=== PATIENT | female | born 1950 | race African-American/Black ===

== ENCOUNTER 2018-10-09 09:54 | Emergency (ER) | payer MEDICARE, OTHER ==
[2018-10-09 10:24] LABS: #Basophils 0.1 thou/uL (0.0-0.2); #Eosinphils 0.1 thou/uL (0.0-0.7); #Monocytes 0.6 thou/uL (0.11-0.59); %Basophils 1.2 % (0.0-1.0); %Eosinophils 1.6 % (0.0-10.0); %Monocytes 6.3 % (0.0-10.0); Hemoglobin 13.7 g/dL (12.0-16.0); Mean Corpuscular HGB CONC 33.9 g/dL (32.0-36.0); Mean Corpuscular Volume 79.5 fL (78.0-98.0); Mean Platelet Volume 8.4 fL (7.4-10.4); Platelet Count 269 thou/uL (130-400); RBC Distribution Width 18.1 % (11.5-14.5); Red Blood Cell (RBC) Count 5.06 mill/uL (4.20-5.40); White Blood Cell (WBC) Count 8.8 thou/uL (4.8-10.8)
[2018-10-09 10:38] LABS: ALT (SGPT) 21 U/L (8-55); AST (SGOT) 18 U/L (5-34); Albumin 3.7 g/dL (3.4-4.8); Alkaline Phosphatase 93 U/L (40-150); Anion Gap 12 mmol/L (10-20); BUN (Urea Nitrogen) 15 mg/dL (9.8-20.1); Bilirubin, Total 0.5 mg/dL (0.2-1.2); Calc. Creatinine Clearance 0 mL/min (70-130); Calcium 9.9 mg/dL (7.8-10.44); Carbon Dioxide 26 mmol/L (23-31); Chloride 105 mmol/L (98-107); Estimated GFR-MDRD 80; Globulin 3.5 g/dL (2.4-3.5); Glucose 135 mg/dL (80-115); Potassium 3.9 mmol/L (3.5-5.1); Protein, Total 7.2 g/dL (6.0-8.3); Sodium 139 mmol/L (136-145)
[2018-10-09] MEDS ORDERED: Ketorolac Tromethamine 30 MG/ML VIAL ONE (11:53)
[2018-10-09] MEDS ORDERED: Prochlorperazine 10 MG/2 ML VIAL ONE (12:15)
[2018-10-09] MEDS ORDERED: diphenhydrAMINE 50 MG/ML VIAL ONE (12:15)
--- NOTE | 2018-10-09 15:39 | RAD ---
PORTABLE CHEST: Date: 10/09/18 An AP portable film at 1001 hours shows a normal sized heart and clear lungs. No infiltrate or effusi on seen. There is no vascular congestion or edema. Mediastinum shows no widening. IMPRESSION: No significant findings. POS: HOME
--- NOTE | 2018-10-10 09:53 | CT ---
PRELIMINARY REPORT/[facility]/EMERGENTY AFTER-HOURS PROCEDURE CT Angiography Chest With Contrast EXAM DATE/TIME: 10/09/2018 11:30 AM CLINICAL HISTORY: 67 years old, female; Pain; Other: Chest pain; Additional info: No prev/er/67f presents with complain ts of intermittent elevated blood pressure, with brief episodes of sharp stabbing headache, chest sean n, jaw and arm pain, all of which have been going on for the past 3 days. Reports BP at home of 220/1 40 TECHNIQUE: Axial computed tomographic angiography images of the chest with intravenous contrast using CT angiogr aphy protocol. COMPARISON: No relevant prior studies available. FINDINGS: Pulmonary arteries: There is no pulmonary arterial filling defect. Aorta: There is an incidental anatomic variation left vertebral artery with a direct aortic origin. T he thoracic aorta is normal. There is no stenosis, dissection or aneurysm. Thyroid: There are tiny hypodense right thyroid nodules measuring up to 5 mm. Thyroid lesions this si ze are statistically most likely benign. ACR White Paper guidelines (Rossi JK, et al. JACR 2015;12(2):143-50) suggest that no follow-up is necessary. Lungs: There is atelectasis within the lungs. There is no organized pneumonia. There is a small right lower lobe bulla. There is no evidence of pneumonia. Pleural space: Normal. No pneumothorax. No pleural effusion. Heart: There is mild cardiomegaly. There is no coronary artery calcification detected. Mediastinum: A small hiatal hernia is present. Lymph nodes: Unremarkable. No enlarged lymph nodes. Bones/joints: Unremarkable. No acute fracture. Soft tissues: Unremarkable. IMPRESSION: 1. The thoracic aorta is normal. There is no stenosis, dissection or aneurysm. 2. There is no acute cardiopulmonary process. 3. There is mild cardiomegaly. There is no coronary artery calcification detected. CT Angiography Abdomen and Pelvis With Contrast EXAM DATE/TIME: 10/09/2018 11:30 AM CLINICAL HISTORY: 67 years old, female; Pain; Other: Chest pain; Additional info: No prev/er/67f presents with complain ts of intermittent elevated blood pressure, with brief episodes of sharp stabbing headache, chest sean n, jaw and arm pain, all of which have been going on for the past 3 days. Reports BP at home of 220/1 40 TECHNIQUE: Axial computed tomographic angiography images of the abdomen and pelvis with intravenous contrast mat erial, including non-contrast images if performed. MIP and/or 3D reconstructed images were created and reviewed. All CT scans at this facility use at le ast one of these dose optimization techniques: automated exposure control; mA and/or kV adjustment pe r patient size (includes targeted exams where dose is matched to clinical indication); or iterative r econstruction. MIP reconstructed images were created and reviewed. CONTRAST: 100 ml of ISO 370 administered intravenously. COMPARISON: No relevant prior studies available. FINDINGS: VASCULATURE: Aorta: The abdominal aorta is normal. There is no dissection, aneurysm or stenosis. Celiac trunk and mesenteric arteries: No occlusion or significant stenosis. Renal arteries: No occlusion or significant stenosis. Right iliac arteries: No occlusion or significant stenosis. Right femoral/popliteal arteries: No occlusion or significant stenosis of the imaged proximal femoral artery. The popliteal artery was not imaged. Left iliac arteries: No occlusion or significant stenosis. Left femoral/popliteal arteries: No occlusion or significant stenosis of the imaged proximal femoral artery. The popliteal artery was not imaged. ABDOMEN: Liver: No mass. Gallbladder and bile ducts: Unremarkable. No calcified stones. No ductal dilation. Pancreas: Unremarkable. No mass. No ductal dilation. Spleen: Unremarkable. No splenomegaly. Adrenals: There is nodularity of the left adrenal gland without a dominant mass. There is no acute ad renal gland abnormality detected. Normal right adrenal gland. Kidneys and ureters: Unremarkable. No solid mass. No hydronephrosis. Stomach and bowel: Moderate nonacute colonic diverticulosis is present. There is segmental mucosal th ickening of the colon from cecum to the transverse segment. There is no pericolonic fat stranding. This may be due to colon spasm versus mild segmental colitis. No bowel obstruction. Appendix: The appendix is normal. PELVIS: Bladder: The urinary bladder is not in the [id number]-cusl. Reproductive: The uterus is not in the [id number]. ABDOMEN and PELVIS: Intraperitoneal space: Unremarkable. No free air. No significant fluid collection. Bones/joints: No acute fracture. No dislocation. Soft tissues: Unremarkable. Lymph nodes: Unremarkable. No enlarged lymph nodes. IMPRESSION: 1. The abdominal aorta is normal. There is no dissection, aneurysm or stenosis. 2. There is segmental mucosal thickening of the colon from cecum to the transverse segment. There is no pericolonic fat stranding. This may be due to colon spasm versus mild segmental colitis. Thank you for allowing us to participate in the care of your patient. Dictated and Authenticated by: Donaldo Hargrove DO FINAL REPORT CTA AORTIC DISSECTION: 10/09/2018 TECHNIQUE: A spiral CT of the abdomen and pelvis was performed from the thoracic inlet through the bifurcation o f the aorta. A bolus of IV contrast was given and then there were coronal and sagittal reconstructio ns done. The aorta shows no sign of aneurysm or dissection. I am not impressed by a large amount of calcifica tion within the aorta. The coronary arteries are seen to fill with contrast. There is no pericardia l fluid. There is no mediastinal mass or adenopathy. The left vertebral artery appears to originate from the aortic arch. The lungs show some basilar atelectasis and some emphysematous changes with bullae, particularly on t he right. No lobar consolidation was seen. The pulmonary arteries fill well and show no defects to suggest emboli. An incidental finding is a s mall lucency or two in the right lobe of the thyroid gland, which may be a small cyst. Ultrasound wo uld be needed to be definitive. The abdominal aorta showed no sign of aneurysm or dissection. The celiac and both mesenteric arterie s fill well. The renal arteries appear normal. The liver, spleen, pancreas, adrenal glands, and aorta are unremarkable in appearance. The kidneys s how no mass or hydronephrosis. No free air or free fluid is seen in the areas scanned. There may be some mild mucosal thickening of the right colon through the proximal transverse colon. There is no stranding around it, however. A few diverticula are noted in the colon. IMPRESSION: 1. No evidence of aortic dissection or aneurysm. No sign of pulmonary embolism. 2. Questionable mucosal thickening in the right colon and proximal transverse colon. 3. Incidental finding of a small hiatal hernia. Report in agreement with preliminary reading by Dion. POS: HOME
== END 2018-10-09 13:40 | disposition home or self-care (01) ==
LOC: BURERS 09:54
DX: I10 Essential (primary) hypertension (principal); K21.9 Gastro-esophageal reflux disease without esophagitis; Z79.899 Other long term (current) drug therapy
CPT/HCPCS: 71045; 71275; 80053; 83880; 84484; 85025; 85379; 93005; 96361; 96374; 96375; J0780; J1200; J1885

== ENCOUNTER 2019-12-24 10:17 | Emergency (ER) | payer MEDICARE, OTHER ==
--- NOTE | 2019-12-24 11:02 | CT ---
CT BRAIN WITHOUT CONTRAST: HISTORY: Stroke FINDINGS: No evidence of acute infarct, hemorrhage, midline shift or abnormal extra-axial fluid collections is seen. The ventricular size is appropriate and the basilar cisterns are patent. The bony calvarium is intact. The visualized paranasal sinuses and mastoid air cells are well aerated. IMPRESSION: No CT evidence of acute intracranial process.
[2019-12-24 11:36] LABS: ALT (SGPT) 23 U/L (8-55); AST (SGOT) 21 U/L (5-34); Albumin 3.8 g/dL (3.4-4.8); Alkaline Phosphatase 113 U/L (40-110); Anion Gap 13 mmol/L (10-20); BUN (Urea Nitrogen) 15 mg/dL (9.8-20.1); Bilirubin, Total 0.6 mg/dL (0.2-1.2); Calc. Creatinine Clearance 0 mL/min (70-130); Calcium 9.2 mg/dL (7.8-10.44); Carbon Dioxide 29 mmol/L (23-31); Chloride 103 mmol/L (98-107); Estimated GFR-MDRD 68; Globulin 4.3 g/dL (2.4-3.5); Glucose 98 mg/dL (80-115); Potassium 3.1 mmol/L (3.5-5.1); Protein, Total 8.1 g/dL (6.0-8.3); Sodium 142 mmol/L (136-145)
[2019-12-24 11:38] LABS: #Basophils 0.1 thou/uL (0.0-0.2); #Eosinphils 0.2 thou/uL (0.0-0.7); #Lymphocytes 1.7 thou/uL (1.20-3.40); #Monocytes 0.6 thou/uL (0.11-0.59); #Neutrophils 6.5 thou/uL (1.40-6.50); %Eosinophils 2.5 % (0.0-10.0); %Lymphocytes 19.1 % (21.0-51.0); %Monocytes 6.3 % (0.0-10.0); %Neutrophils 71.2 % (42.0-75.0); Elliptocytes SLIGHT = 2-5 cells (100X) (0-1/hpf); Hemoglobin 12.3 g/dL (12.0-16.0); MDiff Complete? YES; Mean Corpuscular HGB CONC 31.1 g/dL (32.0-36.0); Mean Corpuscular Hemoglobin 26.9 pg (27.0-31.0); Mean Corpuscular Volume 86.3 fL (78.0-98.0); Mean Platelet Volume 8.1 fL (7.4-10.4); Microcytosis SLIGHT = 6-15 cells (100X) (0-5/hpf); Platelet Count 223 thou/uL (130-400); RBC Distribution Width 20.2 % (11.5-14.5); Red Blood Cell (RBC) Count 4.57 mill/uL (4.20-5.40); White Blood Cell (WBC) Count 9.1 thou/uL (4.8-10.8)
[2019-12-24] MEDS ORDERED: Aspirin Chewable 81 MG TAB ONE (12:02)
== END 2019-12-24 13:11 | disposition home or self-care (01) ==
LOC: BURERS 10:17
DX: G45.9 Transient cerebral ischemic attack, unspecified (principal); I10 Essential (primary) hypertension; K21.9 Gastro-esophageal reflux disease without esophagitis; Z79.82 Long term (current) use of aspirin; Z79.899 Other long term (current) drug therapy
CPT/HCPCS: 70450; 80053; 85025; 93005

== ENCOUNTER 2020-06-05 11:51 | Emergency (ER) | payer MEDICARE, OTHER ==
[~2020-06-05 11:51] MED LIST: Iopamidol 370 76% 100 ML VIAL ONE
[2020-06-05] MEDS ORDERED: Ondansetron PF 4 MG/2 ML Vial ONE (12:25)
[2020-06-05] MEDS ORDERED: Ketorolac Tromethamine 30 MG/ML VIAL ONE (12:25)
[2020-06-05 12:26] LABS: Bilirubin Negative (Negative); Blood, Urine Trace (Negative); Clarity Slightly Cloudy (Clear); Glucose, Urine (Dipstick) Negative (Negative); Ketone, Urine Negative (Negative); Leukocyte Negative (Negative); Nitrite Negative (Negative); Protein, Urine (Dipstick) Negative (Neg-Trace); Urobilinogen 0.2 mg/dL (Less than 2); pH, Urine 5.5 (5.0-9.0)
[2020-06-05 12:28] LABS: RBC/HPF 0-3 HPF (0-3); WBC/HPF 0-3 HPF (0-3)
[2020-06-05 12:29] LABS: Bacteria/HPF 1+ HPF (None Seen); Mucous/LPF 1+ LPF (<2+)
[2020-06-05 12:41] LABS: Hemoglobin 12.6 g/dL (12.0-16.0); Mean Corpuscular Hemoglobin 26.7 pg (27.0-31.0); Mean Corpuscular Volume 86.1 fL (78.0-98.0); Mean Platelet Volume 8.8 fL (7.4-10.4); Platelet Count 237 thou/uL (130-400); White Blood Cell (WBC) Count 10.9 thou/uL (4.8-10.8)
[2020-06-05 12:43] LABS: ALT (SGPT) 28 U/L (8-55); AST (SGOT) 21 U/L (5-34); Albumin 3.7 g/dL (3.4-4.8); Alkaline Phosphatase 118 U/L (40-110); Anion Gap 14 mmol/L (10-20); BUN (Urea Nitrogen) 15 mg/dL (9.8-20.1); Bilirubin, Total 0.4 mg/dL (0.2-1.2); Calc. Creatinine Clearance 0 mL/min (70-130); Calcium 9.2 mg/dL (7.8-10.44); Carbon Dioxide 27 mmol/L (23-31); Chloride 104 mmol/L (98-107); Estimated GFR-MDRD 73; Globulin 4.1 g/dL (2.4-3.5); Glucose 114 mg/dL (80-115); Protein, Total 7.8 g/dL (6.0-8.3); Sodium 141 mmol/L (136-145)
[2020-06-05 12:55] LABS: #Basophils 0.1 thou/uL (0.0-0.2); #Eosinphils 0.2 thou/uL (0.0-0.7); #Monocytes 0.7 thou/uL (0.11-0.59); #Neutrophils 7.9 thou/uL (1.40-6.50); %Basophils 0.9 % (0.0-1.0); %Eosinophils 1.7 % (0.0-10.0); %Lymphocytes 18.2 % (21.0-51.0); %Monocytes 6.2 % (0.0-10.0)
[2020-06-05 12:56] LABS: Anisocytosis SLIGHT = 6-15 cells (100X) (0-5/hpf); Hypochromia SLIGHT = 6-15 cells (100X) (0-5/hpf); MDiff Complete? YES; Platelet Morphology Comment Appears Adequate; Polychromasia SLIGHT = 2-3 cells (100X) (0-2/hpf)
--- NOTE | 2020-06-05 13:21 | CT ---
CT Abdomen Pelvis W Con: 06/05/2020 12:33 PM CLINICAL INFORMATION: Sudden onset of abdominal pain with nausea COMPARISON: None. TECHNIQUE: Multiple contiguous axial images were obtained and a CT of the abdomen and pelvis with IV contrast. C oronal and sagittal reformats were performed. FINDINGS: Lower Chest: within normal limits. Abdomen: Liver: within normal limits. Bile Ducts: Normal caliber. Gallbladder: No calcified gallstones. Normal caliber wall. Pancreas: within normal limits. Spleen: within normal limits. Adrenals: within normal limits. Kidneys: within normal limits. Pelvis: Reproductive Organs: Status post hysterectomy Ureters: within normal limits. Bladder: within normal limits. Peritoneum: No ascites or free air, no fluid collection. Bowel: Normal caliber. Normal appendix. Scattered diverticula in the colon. Mesentery and Retroperitoneum: No enlarged mesenteric or retroperitoneal lymph nodes. Vessels: Normal. Abdominal Wall: within normal limits. Bones: Degenerative changes in the spine. IMPRESSION: Diverticulosis
[2020-06-05] MEDS ORDERED: Fentanyl 100 MCG/2 ML VIAL ONE (13:34)
== END 2020-06-05 14:20 | disposition home or self-care (01) ==
LOC: BURERS 11:51
DX: K57.90 Diverticulosis of intestine, part unspecified, without perforation or abscess without bleeding (principal); I10 Essential (primary) hypertension; K21.9 Gastro-esophageal reflux disease without esophagitis; E78.00 Pure hypercholesterolemia, unspecified; Z86.73 Personal history of transient ischemic attack (TIA), and cerebral infarction without residual deficits; Z79.899 Other long term (current) drug therapy
CPT/HCPCS: 74177; 80053; 81003; 81015; 85025; 96374; 96375; J1885; J2405; J3010; Q9967

== ENCOUNTER 2023-01-08 13:08 | Emergency (ER) | payer OTHER ==
[2023-01-08 13:33] LABS: #Basophils 0.1 thou/uL (0.0-0.2); #Eosinphils 0.1 thou/uL (0.0-0.7); #Lymphocytes 2.2 thou/uL (1.20-3.40); #Monocytes 0.6 thou/uL (0.11-0.59); #Neutrophils 7.3 thou/uL (1.40-6.50); %Basophils 0.9 % (0.0-1.0); %Eosinophils 1.4 % (0.0-10.0); %Lymphocytes 21.3 % (21.0-51.0); %Monocytes 5.7 % (0.0-10.0); %Neutrophils 70.6 % (42.0-75.0); Hemoglobin 12.7 g/dL (12.0-16.0); Mean Corpuscular HGB CONC 31.6 g/dL (32.0-36.0); Mean Corpuscular Hemoglobin 26.3 pg (27.0-31.0); Mean Corpuscular Volume 83.1 fl (78.0-98.0); Platelet Count 229 10x3/uL (130-400); RBC Distribution Width 21.3 % (11.5-14.5); Red Blood Cell (RBC) Count 4.83 mill/uL (4.20-5.40); White Blood Cell (WBC) Count 10.3 10x3/uL (4.8-10.8)
[2023-01-08 13:34] LABS: MDiff Complete? YES
[2023-01-08] MEDS ORDERED: guaiFENesin ER 600 MG TAB PO SCH (13:45)
[2023-01-08 13:50] LABS: ALT (SGPT) 19 U/L (8-55); AST (SGOT) 18 U/L (5-34); Albumin 3.8 g/dL (3.4-4.8); Alkaline Phosphatase 90 U/L (40-110); Anion Gap 11 mmol/L (10-20); BUN (Urea Nitrogen) 14 mg/dL (9.8-20.1); Bilirubin, Total 0.5 mg/dL (0.2-1.2); Calc. Creatinine Clearance 0 mL/min (70-130); Calcium 9.3 mg/dL (7.8-10.44); Carbon Dioxide 28 mmol/L (23-31); Chloride 106 mmol/L (98-107); Estimated GFR 62; Globulin 4.3 g/dL (2.4-3.5); Glucose 137 mg/dL (83-110); Lipase 19 U/L (8-78); Magnesium 1.8 mg/dL (1.6-2.6); Potassium 3.5 mmol/L (3.5-5.1); Protein, Total 8.1 g/dL (5.8-8.1); Sodium 141 mmol/L (136-145)
[2023-01-08 14:35] LABS: Bilirubin Negative (Negative); Blood, Urine Negative (Negative); Clarity Cloudy (Clear); Glucose, Urine (Dipstick) Negative (Negative); Ketone, Urine Negative (Negative); Leukocyte Negative (Negative); Nitrite Negative (Negative); Protein, Urine (Dipstick) Negative (Neg-Trace); Specific Gravity, Urine 1.015 (1.005-1.030)
== END 2023-01-08 17:18 | disposition home or self-care (01) ==
LOC: BURERS 13:08
DX: J40 Bronchitis, not specified as acute or chronic (principal); I10 Essential (primary) hypertension; K21.9 Gastro-esophageal reflux disease without esophagitis; E78.00 Pure hypercholesterolemia, unspecified; Z86.73 Personal history of transient ischemic attack (TIA), and cerebral infarction without residual deficits
CPT/HCPCS: 71045; 71275; 80053; 81003; 83605; 83690; 83735; 83880; 84443; 84484; 85025; 85379; 93005; 96374; 96375; Q9967